=== PATIENT | male | born 1995 | race Caucasian/White ===

== ENCOUNTER 2017-02-13 17:11 | Emergency (ER) | payer OTHER ==
[~2017-02-13] VITALS: Ht 177.8 cm; Wt 77.3 kg
[2017-02-13 17:14] VITALS: TEMP 99
[2017-02-13] MEDS ORDERED: NORCO 325 MG-51 TAB PO (18:26)
[2017-02-13 18:57] VITALS: BP 122/70; PULSE 74
== END 2017-02-13 19:07 | disposition home or self-care (01) ==
LOC: COL.ER 17:11
DX: S16.1XXA Strain of muscle, fascia and tendon at neck level, initial encounter (principal); S40.022A Contusion of left upper arm, initial encounter; S80.12XA Contusion of left lower leg, initial encounter; Z23 Encounter for immunization; V27.4XXA Motorcycle driver injured in collision with fixed or stationary object in traffic accident, initial encounter; Y93.I9 Activity, other involving external motion